=== PATIENT | male | born 1985 | race Caucasian/White ===

== ENCOUNTER 2020-07-07 04:50 | Emergency (ER) | payer SELFPAY ==
[~2020-07-07] VITALS: Ht 190.5 cm; Wt 79.0 kg
[2020-07-07 05:16] VITALS: BP 162/118
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
[2020-07-07] MEDS ORDERED: DIPH,PERTUSS(ACELL),TET VAC/PF 0.5 ML IM-VACC ONE ×2 (05:30→08:25)
[2020-07-07] MEDS ORDERED: LIDOCAINE 2%, 20ML SQ ONE (05:30)
[2020-07-07] MEDS ORDERED: CEFAZOLIN 1,000 MG IM ONE (05:30)
--- NOTE | 2020-07-07 05:50 | NUR ---
PT TO CT
[2020-07-07] MEDS ORDERED: PLEASE ENTER ALLERGIES MC SCH (06:00)
--- NOTE | 2020-07-07 06:05 | NUR ---
PT BACK FROM CT
[2020-07-07] MEDS ORDERED: LIDOCAINE-MPF 1%, 5ML ONE (06:10)
--- NOTE | 2020-07-07 07:30 | NUR ---
pt does not want to stay for any further medical treatment,declines splint and medication reports his ride is here, abx rx given
[2020-07-07] MEDS ORDERED: CEFAZOLIN 1,000 MG ONE (08:25)
== END 2020-07-07 08:38 | disposition home or self-care (01) ==
LOC: ED 07:24
DX: S06.0X1A Concussion with loss of consciousness of 30 minutes or less, initial encounter (principal); S61.411A Laceration without foreign body of right hand, initial encounter; F10.229 Alcohol dependence with intoxication, unspecified; V57.6XXA Passenger in pick-up truck or van injured in collision with fixed or stationary object in traffic accident, initial encounter; Y93.89 Activity, other specified; Y92.828 Other wilderness area as the place of occurrence of the external cause; Y99.8 Other external cause status; Y90.0 Blood alcohol level of less than 20 mg/100 ml
CPT/HCPCS: 12044; 70450; 99284